=== PATIENT | female | born 1965 | race African-American/Black ===

== ENCOUNTER 2017-01-26 20:24 | Emergency (ER) | payer OTHER ==
[~2017-01-26] VITALS: Ht 162.6 cm; Wt 81.9 kg
[2017-01-27] VITALS: BP 145/75
== END 2017-01-27 | disposition home or self-care (01) ==
LOC: ED 20:24
DX: J20.9 Acute bronchitis, unspecified (principal)
CPT/HCPCS: J7613; J7644

== ENCOUNTER 2017-08-28 17:52 | Emergency (ER) | payer OTHER ==
[~2017-08-28] VITALS: Ht 162.6 cm; Wt 79.4 kg
[2017-08-28 19:19] VITALS: BP 140/83; Ht 162.6 cm; Wt 79.4 kg
== END 2017-08-28 21:20 | disposition left against medical advice (07) ==
LOC: ED 17:52
DX: Z53.21 Procedure and treatment not carried out due to patient leaving prior to being seen by health care provider (principal)

== ENCOUNTER 2017-08-28 21:41 | Emergency (ER) | payer OTHER | END 2017-08-29 01:47 | disposition left against medical advice (07) | LOC: ED 21:41 | DX: Z53.21 Procedure and treatment not carried out due to patient leaving prior to being seen by health care provider (principal) ==

== ENCOUNTER 2017-08-31 08:49 | Emergency (ER) | payer OTHER ==
[~2017-08-31] VITALS: Ht 162.6 cm; Wt 79.8 kg
[2017-08-31 09:09] VITALS: Ht 162.6 cm; Wt 79.8 kg
[2017-08-31 12:43] VITALS: BP 140/86
== END 2017-08-31 12:43 | disposition home or self-care (01) ==
LOC: ED 08:49
DX: J02.9 Acute pharyngitis, unspecified (principal); B34.9 Viral infection, unspecified; Z98.51 Tubal ligation status
CPT/HCPCS: J1885

== ENCOUNTER 2019-05-07 20:56 | Emergency (ER) | payer OTHER ==
[~2019-05-07] VITALS: Ht 162.6 cm; Wt 86.6 kg
[2019-05-07 21:12] VITALS: BP 133/77; Ht 162.6 cm; Wt 86.6 kg
== END 2019-05-07 23:45 | disposition home or self-care (01) ==
LOC: ED 20:56
DX: J02.9 Acute pharyngitis, unspecified (principal); R03.0 Elevated blood-pressure reading, without diagnosis of hypertension; Z98.51 Tubal ligation status; Z90.711 Acquired absence of uterus with remaining cervical stump
CPT/HCPCS: J0561

== ENCOUNTER 2020-01-09 22:31 | Emergency (ER) | payer OTHER ==
[~2020-01-09] VITALS: Ht 162.6 cm; Wt 84.1 kg
[2020-01-10 00:02] LABS: CARBON DIOXIDE 28.9 mmol/L (21-32); CHLORIDE SERUM 103 mmol/L (98-107); CREATININE SERUM 0.9 mg/dL (0.6-1.0); GFR1 > 60 mL/min; GLUCOSE SERUM 109 mg/dL (74-106); POTASSIUM SERUM 3.7 mmol/L (3.5-5.1); SODIUM SERUM 141 mmol/L (136-145)
[2020-01-10 00:07] LABS: ALBUMIN 3.8 g/dL (3.4-5.0); ALKALINE PHOSPHATASE 74 U/L (46-116); ALT/SGPT 28 U/L (14-59); AST/SGOT 22 U/L (15-37); BILIRUBIN TOTAL 0.2 mg/dL (0.20-1.00); TOTAL PROTEIN, SERUM 7.2 g/dL (6.4-8.2)
[2020-01-10 00:16] LABS: microscopic required? NO
[2020-01-10 00:17] LABS: BASOPHIL % 0.3 % (0-2); PLATELET COUNT 294 x10^3mcL (130-400); RED CELL DISTRIBUTION WIDTH 13.8 % (11.5-14.5)
[2020-01-10 00:52] VITALS: BP 135/81
[2020-01-10 00:53] LABS: urine erythrocyte NEGATIVE (NEGATIVE)
[2020-01-10 01:08] LABS: AMPHETAMINE QUAL UR NONE DETECTED (See below)
== END 2020-01-10 00:52 | disposition home or self-care (01) ==
LOC: ED 22:31
PROVIDERS: Emergency Medicine
DX: I10 Essential (primary) hypertension (principal); Z98.890 Other specified postprocedural states
CPT/HCPCS: 36415; Q0092

== ENCOUNTER 2020-08-04 19:37 | Emergency (ER) | payer OTHER ==
[~2020-08-04] VITALS: Ht 162.6 cm; Wt 85.3 kg
[2020-08-04 20:05] VITALS: Ht 162.6 cm; Wt 85.3 kg
[2020-08-04 22:06] VITALS: BP 159/78
== END 2020-08-04 22:06 | disposition home or self-care (01) ==
LOC: ED 19:37
DX: M77.8 Other enthesopathies, not elsewhere classified (principal); S63.501A Unspecified sprain of right wrist, initial encounter; Z98.51 Tubal ligation status; Z90.711 Acquired absence of uterus with remaining cervical stump; X50.9XXA Other and unspecified overexertion or strenuous movements or postures, initial encounter; Y93.89 Activity, other specified; Y92.89 Other specified places as the place of occurrence of the external cause; Y99.8 Other external cause status
CPT/HCPCS: J1885